=== PATIENT | female | born 1950 | race Caucasian/White ===

== ENCOUNTER 2022-06-17 17:17 | Inpatient (IN) | payer MEDICARE, OTHER ==
[~2022-06-17] VITALS: Ht 162.6 cm; Wt 88.0 kg
[2022-06-17 17:45] LABS: HEMATOCRIT 38.1 % (37.0-47.0); HEMOGLOBIN 13.1 g/dl (12.0-16.0); IMMATURE GRANULOCYTES 0.1 % (0.0-5.0); MEAN CELL VOLUME 92.7 fL CALC (80.0-100.0); MEAN CORPUSCULAR HGB 31.9 pG CALC (26.0-32.0); MEAN CORPUSCULAR HGB CONC 34.4 g/dL CAL (32.0-36.0); NEUT# 3.53 thou/uL (2.00-7.15); RED BLOOD COUNT 4.11 mill/uL (4.20-5.60); RED CELL DISTRI WIDTH 12.9 % (11.5-15.5)
[2022-06-17 17:55] LABS: ALBUMIN 4.4 g/dL (3.2-5.0); ALKALINE PHOSPHATASE 63 u/l (38-126); ANION GAP 14 (6-22 (CALC)); BUN 11 mg/dL (8-23); BUN/CREATININE RATIO 18 (12-20 (CALC)); CARBON DIOXIDE 25 mmol/l (22-30); CHLORIDE 101 mmol/l (95-108); CREATININE 0.6 mg/dL (0.5-1.0); GFR FOR AFR.AMER. > 60 ML/MIN (>=60 (CALC)); GFR OTHER RACES > 60 ML/MIN (>=60 (CALC)); POTASSIUM 3.4 mmol/l (3.5-5.1); SGOT/AST 27 u/l (9-36); SODIUM 137 mmol/l (137-146); TOTAL PROTEIN 7.2 g/dL (6.3-8.2)
[2022-06-17 17:59] LABS: BILIRUBIN, TOTAL 0.2 mg/dL (0.0-1.4)
[2022-06-17 20:05] VITALS: BP 164/86
[2022-06-18] VITALS (16 sets, daily range): BP systolic 114–168; BP diastolic 50–89
[2022-06-18 05:37] LABS: URINE BILIRUBIN - DIPSTICK NEGATIVE (NEGATIVE); URINE BLOOD DIPSTICK SMALL (NEGATIVE); URINE COLOR YELLOW; URINE GLUCOSE - DIPSTICK NEGATIVE (NEGATIVE); URINE KETONE NEGATIVE (NEGATIVE); URINE PROTEIN - DIPSTICK NEGATIVE (NEG-TRACE); URINE UROBILINOGEN - DIPSTICK 0.2 E.U./dL (0.2)
[2022-06-18 05:46] LABS: URINE NITRITE - DIPSTICK NEGATIVE (Negative)
[2022-06-18 05:47] LABS: URINE LEUK ESTERASE NEGATIVE (NEGATIVE)
[2022-06-18 05:48] LABS: URINE BACTERIA FEW hpf; URINE EPITHELIAL CELLS FEW EPI/hpf (0-FEW); URINE WBC 0-2 WBC/hpf (0-5)
[2022-06-18] MEDS ORDERED: DILT-XR120 MG PO (11:06)
[2022-06-18] MEDS ORDERED: INCRUSE EL62.5 MCG/I PO (11:07)
[2022-06-18] MEDS ORDERED: EUTHYROX88 MCG PO (11:07)
[2022-06-18] MEDS ORDERED: BUDESONID2 IN (11:08)
[2022-06-18] MEDS ORDERED: PRAVASTATIN20 MG PO (11:08)
[2022-06-18] MEDS ORDERED: MONTELUKAST SOD10 MG PO (11:08)
[2022-06-18] MEDS ORDERED: SLOW-MAG PO (11:09)
[2022-06-18] MEDS ORDERED: AZELASTINE HCL0.1 % (11:09)
[2022-06-18] MEDS ORDERED: BAYER ASPIRIN E81 MG PO (11:10)
[2022-06-18] MEDS ORDERED: HYDROCHLOROT25 MG PO (11:11)
[2022-06-18] MEDS ORDERED: LOSARTAN POTASS50 MG PO (11:11)
[2022-06-19] VITALS (49 sets, daily range): BP systolic 107–169; BP diastolic 58–111
[2022-06-19 07:18] LABS: HEMATOCRIT 39.8 % (37.0-47.0); HEMOGLOBIN 13.7 g/dl (12.0-16.0); MEAN CELL VOLUME 93.6 fL CALC (80.0-100.0); MEAN CORPUSCULAR HGB 32.2 pG CALC (26.0-32.0); MEAN CORPUSCULAR HGB CONC 34.4 g/dL CAL (32.0-36.0); RED BLOOD COUNT 4.25 mill/uL (4.20-5.60); RED CELL DISTRI WIDTH 13.6 % (11.5-15.5)
[2022-06-19 07:21] LABS: ANION GAP 11 (6-22 (CALC)); BUN 14 mg/dL (8-23); BUN/CREATININE RATIO 31 (12-20 (CALC)); CARBON DIOXIDE 27 mmol/l (22-30); CHLORIDE 104 mmol/l (95-108); CREATININE 0.5 mg/dL (0.5-1.0); GFR FOR AFR.AMER. > 60 ML/MIN (>=60 (CALC)); GFR OTHER RACES > 60 ML/MIN (>=60 (CALC)); POTASSIUM 3.9 mmol/l (3.5-5.1); SODIUM 139 mmol/l (137-146)
[2022-06-19 07:23] LABS: MAGNESIUM 2.4 mg/dL (1.6-2.3)
[2022-06-20] VITALS (11 sets, daily range): BP systolic 131–164; BP diastolic 59–98
[2022-06-20] MEDS ORDERED: DOXYCYCLINE HY100 MG PO (08:52)
[2022-06-20] MEDS ORDERED: XARELTO20 MG PO (08:52)
[2022-06-20] MEDS ORDERED: FLECAINIDE50 MG PO (08:53)
[2022-06-20] MEDS ORDERED: TESSALON PERLE100 MG PO (08:54)
[2022-06-20] MEDS ORDERED: ALBUTEROL SUL0.083 % IN (08:55)
[2022-06-20] MEDS ORDERED: PREDNISONE10 MG PO (08:57)
== END 2022-06-20 10:15 | disposition home or self-care (01) | DRG 190 ==
LOC: ED 17:17 → ED-I 18:04 → ED 18:21 → MS2 18:32 → ICU 18:32 → MS2 19:17 → ICU 06-18 12:31
PROVIDERS: Family Medicine; ADMIT Internal Medicine; ATTEND Internal Medicine
DX: J44.1 Chronic obstructive pulmonary disease with (acute) exacerbation (principal); J96.01 Acute respiratory failure with hypoxia; I47.1 Supraventricular tachycardia; I48.0 Paroxysmal atrial fibrillation; I10 Essential (primary) hypertension; J98.6 Disorders of diaphragm; E78.5 Hyperlipidemia, unspecified; E03.9 Hypothyroidism, unspecified; G47.33 Obstructive sleep apnea (adult) (pediatric); E66.9 Obesity, unspecified; Z85.3 Personal history of malignant neoplasm of breast; Z92.3 Personal history of irradiation; Z87.891 Personal history of nicotine dependence; Z20.822 Contact with and (suspected) exposure to COVID-19
CPT/HCPCS: G0378; J1650; J3475